=== PATIENT | female | born 1995 | race Caucasian/White ===

== ENCOUNTER → 2020-11-10 | Outpatient (REF) | payer OTHER ==
[2020-11-10 12:21] LABS: HEMATOCRIT 39.9 % (36.0-47.0); HEMOGLOBIN 13.6 g/dl (12.0-15.5); MEAN CORPUSCULAR HEMOGLOBIN 28.5 pg (27.0-33.0); MEAN CORPUSCULAR HGB CONC 34.1 g/dl (32.0-36.5); MEAN CORPUSCULAR VOLUME 83.6 fl (80.0-96.0); PLATELET COUNT, AUTOMATED 241 10^3/uL (150-450); RED BLOOD COUNT 4.77 10^6/uL (4.00-5.40); WHITE BLOOD COUNT 7.5 10^3/uL (4.0-10.0)
[2020-11-10 13:34] LABS: HEPATITIS C VIRUS ABY INDEX < 0.0 INDEX (<0.8); HIV 1&2 SCREEN CENTAUR NEGATIVE (NEGATIVE)
[2020-11-10 14:28] LABS: CHLAMYDIA DNA AMPLIFICATION NEGATIVE (NEGATIVE); GC DNA AMPLIFICATION NEGATIVE (NEGATIVE)
== END ==
LOC: M PLALAB 10:01
PROVIDERS: ATTEND Obstetrics & Gynecology
DX: Z34.91 Encounter for supervision of normal pregnancy, unspecified, first trimester (principal)
CPT/HCPCS: 36415; 85027; 86762; 86780; 86803; 86850; 86900; 86901; 87086; 87340; 87389; 87491; 87591; G0463

== ENCOUNTER → 2021-01-05 | Outpatient (CLI) | payer OTHER, SELFPAY ==
[~2021-01-05] MED LIST: ACET325C5 PO; PRENTAB9 PO
== END ==
LOC: M WHC 11:25
PROVIDERS: ATTEND Obstetrics & Gynecology
DX: Z36.89 Encounter for other specified antenatal screening (principal); Z3A.21 21 weeks gestation of pregnancy; O32.1XX0 Maternal care for breech presentation, not applicable or unspecified

== ENCOUNTER → 2021-02-05 | Outpatient (CLI) | payer OTHER ==
--- NOTE | 2021-02-05 12:05 | REP ---
INDICATION: F/U ANATOMY. VENTRICULAR OUTFLOW TRACTS NOT SEEN ON THE PRIOR EXAM COMPARISON: 01/05/2021 TECHNIQUE: Transabdominal FINDINGS: Multiple ultrasonographic images of the gravid uterus shows a single living intrauterine gestation in the cephalic presentation. Doppler interrogation of the heart shows a heart rate of 149 beats per minute. The placenta is anterior and not low-lying. The cervix measures 3.3 cm in length and is closed. The subjective amniotic fluid volume is increased. BPD: 6.8 cm 27 weeks 3 days HC: 25.6 cm 27 weeks 5 days AC: 23.1 cm 27 weeks 3 days FL: 5.1 cm 27 weeks 3 days The estimated weight is 1082 g which is at the 97 percentile for a 25 week 5 day gestational age. Ventricular outflow tracts were seen today to be within normal limits. IMPRESSION: Single living intrauterine gestation as described above with an estimated gestational age of 27 weeks 4 days via composite criteria and an estimated date of delivery of 05/03/2021 by today's exam. There is subjective evidence of polyhydramnios. Follow-up is recommended. <Electronically signed by Osmel Lino > 02/05/21 [id number]
== END ==
LOC: M WHC 11:09
PROVIDERS: ATTEND Advanced Practice Midwife
DX: Z36.2 Encounter for other antenatal screening follow-up (principal); Z3A.27 27 weeks gestation of pregnancy

== ENCOUNTER → 2021-02-19 | Outpatient (CLI) | payer OTHER ==
[2021-02-19 13:20] LABS: HEMATOCRIT 36.7 % (36.0-47.0); HEMOGLOBIN 12.3 g/dl (12.0-15.5); MEAN CORPUSCULAR HEMOGLOBIN 28.7 pg (27.0-33.0); MEAN CORPUSCULAR HGB CONC 33.5 g/dl (32.0-36.5); MEAN CORPUSCULAR VOLUME 85.7 fl (80.0-96.0); PLATELET COUNT, AUTOMATED 226 10^3/uL (150-450); RED BLOOD COUNT 4.28 10^6/uL (4.00-5.40); WHITE BLOOD COUNT 7.2 10^3/uL (4.0-10.0)
== END ==
LOC: M PLALAB 10:46
PROVIDERS: ATTEND Advanced Practice Midwife
DX: Z36.89 Encounter for other specified antenatal screening (principal); Z3A.22 22 weeks gestation of pregnancy

== ENCOUNTER 2021-03-17 11:18 | Emergency (ER) | payer OTHER ==
[~2021-03-17] VITALS: Ht 170.2 cm; Wt 88.6 kg
[2021-03-17] MEDS ORDERED: ACETAMINOPHEN 325 MG TAB PO ONE (13:45)
[2021-03-17 14:02] VITALS: BP 126/69
[2021-03-17] MEDS ORDERED: NS 1,000 ML IV ONE (14:35)
[2021-03-17] MEDS ORDERED: PRENTAB9 PO (17:37)
[2021-03-17] MEDS ORDERED: ACET325C5 PO (17:37)
== END 2021-03-17 17:15 | disposition admitted as inpatient to this hospital (09) ==
LOC: M ED 11:18
DX: O99.413 Diseases of the circulatory system complicating pregnancy, third trimester (principal); O26.893 Other specified pregnancy related conditions, third trimester; Z3A.31 31 weeks gestation of pregnancy

== ENCOUNTER 2021-03-17 17:21 | Outpatient (CLI) | payer OTHER ==
[~2021-03-17] VITALS: Ht 170.2 cm; Wt 88.6 kg
[2021-03-17] MEDS ORDERED: ACET325C5 PO (17:37)
[2021-03-17] MEDS ORDERED: PRENTAB9 PO (17:37)
[2021-03-17 17:38] VITALS: BP 133/69
[2021-03-17] MEDS ORDERED: HOME MED LIST COMPLETE! XX SCH (17:40)
[2021-03-17 18:10] VITALS: BP 132/69
== END 2021-03-17 18:30 | disposition home or self-care (01) ==
LOC: M LDO 17:21
PROVIDERS: ATTEND Obstetrics & Gynecology
DX: O9A.23 Injury, poisoning and certain other consequences of external causes complicating the puerperium (principal); Z3A.31 31 weeks gestation of pregnancy; T59.894A Toxic effect of other specified gases, fumes and vapors, undetermined, initial encounter; O40.3XX0 Polyhydramnios, third trimester, not applicable or unspecified
CPT/HCPCS: 59025; G0378; G0463

== ENCOUNTER → 2021-04-17 | Outpatient (REF) | payer OTHER | LOC: M SFHCWAGY 13:08 | PROVIDERS: ATTEND Advanced Practice Midwife | DX: Z36.85 Encounter for antenatal screening for Streptococcus B (principal); Z3A.35 35 weeks gestation of pregnancy | CPT/HCPCS: 87081; 90471; 90715; G0463 ==

== ENCOUNTER 2021-05-06 05:24 | Inpatient (IN) | payer OTHER ==
[~2021-05-06] VITALS: Ht 170.2 cm; Wt 93.5 kg
[2021-05-06] VITALS (41 sets, daily range): BP systolic 88–168; BP diastolic 52–125
[2021-05-06] MEDS ORDERED: HOME MED LIST COMPLETE! XX SCH (06:00)
[2021-05-06] MEDS ORDERED: LACTATED RINGER'S 1000 ML IV STA (09:51)
[2021-05-06] MEDS ORDERED: OXYTOCIN DRIP 30 UNITS in IV 1 EA IV PRN ×4 (09:55)
[2021-05-06] MEDS ORDERED: LR 1,000 ML IV SCH (09:55)
[2021-05-06] MEDS ORDERED: CARBOPROST TROMETHAMINE 250 MCG/ML AMP IM PRN (09:55)
[2021-05-06] MEDS ORDERED: METHYLERGONOVINE MALEATE 0.2 MG/ML VIAL (J2210) IM PRN (09:55)
[2021-05-06] MEDS ORDERED: OXYTOCIN DRIP 30 UNITS in IV 1 EA IV SCH (09:55)
[2021-05-06] MEDS ORDERED: TRANEXAMIC ACID INJection 1,000 MG in NS 100 ML IV PRN (09:55)
[2021-05-06] MEDS ORDERED: LIDOCAINE 1% MDV 20ML VIAL INFIL PRN (09:55)
[2021-05-06 10:28] LABS: HEMATOCRIT 34.6 % (36.0-47.0); HEMOGLOBIN 11.6 g/dl (12.0-15.5); MEAN CORPUSCULAR HEMOGLOBIN 27.5 pg (27.0-33.0); MEAN CORPUSCULAR HGB CONC 33.5 g/dl (32.0-36.5); PLATELET COUNT, AUTOMATED 210 10^3/uL (150-450); RED BLOOD COUNT 4.22 10^6/uL (4.00-5.40); WHITE BLOOD COUNT 7.7 10^3/uL (4.0-10.0)
[2021-05-06] MEDS ORDERED: FENTANYL 2MCG/ML ROPIVACAINE 0.2% IN 0.9% NACL 100ML IVBAG As Ordered ONE (11:01)
[2021-05-06] MEDS ORDERED: REFRIGERATOR IV KEYS XX PRN (11:15)
[2021-05-06] MEDS ORDERED: EPIDURAL COMMENT XX SCH (11:15)
[2021-05-06] MEDS ORDERED: EPIDURAL/PCA KEYS XX PRN (11:15)
[2021-05-06] MEDS ORDERED: FENTANYL/ROPIVACAINE/NACL BAG 100 ML EPIDURAL SCH (11:15)
--- NOTE | 2021-05-06 11:37 | HPE ---
HISTORY AND PHYSICAL DATE OF ADMISSION: 05/06/2021 SUBJECTIVE: Evelin is a 26-year-old 2, para 1-0-0-1 at 38 and 4/7 weeks gestation with EDC of 05/16/2021 based on last menstrual period and confirmed by first trimester sonogram. She presents to Labor and Delivery today with complaint of irregular painful contractions, denies vaginal bleeding, and leakage of fluid. The fetus has been active. Her care was [facility] at [facility] in the first trimester. course has been uncomplicated thus far. OBSTETRIC HISTORY: February 03, 2019, 39 weeks gestation, 9 pound male, vaginal delivery, uncomplicated. OBSTETRIC LABORATORY: A positive. Antibody screen negative. Syphilis negative. Gonorrhea and chlamydia negative. Hepatitis B negative. Hepatitis C negative. HIV negative. Rubella immune. GDS is normal at 92. GBS was negative. PAST MEDICAL HISTORY: Noncontributory. SURGERIES: None. FAMILY HISTORY: Noncontributory. SOCIAL HISTORY: She is a nonsmoker, denies alcohol and drug use. No history of sexually transmitted infections. Denies history of abuse, physical, sexual, and emotional. ALLERGIES: No known drug allergies. CURRENT MEDICATIONS: vitamin. OBJECTIVE: Temperature 97.6. Pulse 75. Blood pressure 110/59. heart rate is 140 with moderate variability. Positive accelerations. Negative decelerations. Contractions are irregular with uterine irritability. Repeat cervical exam at approximately 9:45, 6-7 cm dilated, 8% effaced, -3 station. Abdomen is gravid, cephalic presentation, 8.5 to 9 pounds. ASSESSMENT: 1. Intrauterine at 38 and 4/7 weeks. 2. heart rate category 1. 3. Early labor. PLAN: 1. Admit patient to Labor and Delivery. 2. Out of bed ad tila. 3. Clear liquid diet. 4. Routine laboratories. 5. IV fluid bolus. 6. Anesthesia consult for epidural for labor coping. 7. Risks, benefits, and alternatives have been reviewed with the patient. All questions were answered. The plan is to start IV Pitocin to augment the patient's labor. I do anticipate a spontaneous vaginal delivery.
[2021-05-06] MEDS ORDERED: NALOXONE INJ 0.4MG/1ML VIAL (J2310 PER 1MG) IV PRN (12:05)
[2021-05-06] MEDS ORDERED: ONDANSETRON 4MG/2ML VIAL IV PRN (12:05)
[2021-05-06] MEDS ORDERED: diphenhydrAMINE 50MG/ML VIAL (J1200) IV PRN (12:05)
[2021-05-06] MEDS ORDERED: LACTATED RINGER'S 1000 ML IV PRN (12:05)
[2021-05-06] MEDS ORDERED: ePHEDrine SULFATE 25 MG/5 ML(5MG/ML) SYRINGE IV PRN (12:05)
[2021-05-06] MEDS ORDERED: ACETAMINOPHEN TAB 650MG DOSE (2X325MG) PO PRN (16:50)
[2021-05-06] MEDS ORDERED: RHOGAM 300 MCG (1500 IU) INJ (J2790) IM SCH (16:50)
[2021-05-06] MEDS ORDERED: IBUPROFEN 600MG TAB PO PRN (16:50)
[2021-05-06] MEDS ORDERED: METHYLERGONOVINE MALEATE 0.2 MG TAB PO PRN (16:50)
[2021-05-06] MEDS ORDERED: DIBUCAINE 1% OINTMENT 30GM TOP PRN (16:50)
[2021-05-06] MEDS ORDERED: DOCUSATE SODIUM 100MG CAPSULE PO PRN (16:50)
[2021-05-06] MEDS ORDERED: MEASLES,MUMPS,RUBELLA VACCINE INJ (MMR-II) (90707) SC SCH (16:50)
--- NOTE | 2021-05-06 17:32 | DN ---
DELIVERY NOTE DATE OF DELIVERY: 05/06/2021 Evelin is a 26-year-old 2, para 2-0-0-2 now, who was admitted to labor and delivery with advanced dilation and irregular contractions. Intravenous (IV) Pitocin was started and labor ensued. She utilized an epidural for her labor coping. She reached complete dilation at 1605. She pushed to normal spontaneous vaginal delivery of a live female in right occiput anterior (PIPER) position with restitution of low occiput transverse (LOT) position at 1623. There was no nuchal cord. Shoulders delivered with gentle downward traction, and the corpus immediately followed. The 's mouth and nares were bulb suctioned. She was placed on the maternal abdomen crying and active. Cord was clamped times two once pulsations ceased and cut by the father of the baby under my direction. A spontaneous expulsion of the intact placenta with 3-vessel cord by Ma mechanism was at 1627. Uterine hemostasis achieved with intravenous (IV) Pitocin rapid infusion and uterine fundal massage. Estimated blood loss 350 mL. Perineum and vagina inspected and noted to have a first-degree midline laceration. The laceration was repaired with 3-0 Vicryl Rapide in the usual fashion. The female weighed 4150 grams, 9 pounds 2 ounces, scores 9 and 9. Mom is going to breast-feed her daughter, and the family have named her Alvarez. At the close of delivery, lap counts, needle counts, and instrument counts were correct and verified.
[2021-05-06] MEDS: IBUPROFEN 800 MG TAB PO PRN (20:37)
[2021-05-07] MEDS: ACETAMINOPHEN 500 MG TAB PO PRN ×2 (05:23→18:23)
[2021-05-07 06:12] VITALS: BP 102/55
[2021-05-07] MEDS: PRENATAL VITAMINS CHEWABLE TABLET PO SCH (08:24)
[2021-05-07] MEDS ORDERED: INFLUENZA QUADRIVALENT PF VACCINE 0.5ML SYRINGE IM ONE (09:00)
[2021-05-07] MEDS: IBUPROFEN 800 MG TAB PO PRN (12:42)
--- NOTE | 2021-05-07 13:17 | IPNPDOC ---
Progress Note Date of Service: May 07, 2021 Day#: 1 Progress Note SUBJECT: Doing well without complaints. Ambulating, voiding and pain is well-c ontrolled. Reports minimal lochia. OBJECTIVE: VITAL SIGNS: Within normal limits, afebrile. Alert and oriented times three. Abdomen: Fundus firm at U-2. Soft, NTTP. Ext: neg calf tenderness. ASSESSMENT: day #1 status post . Recovering in stable condition. PLAN: 1. Continue routine care 2. Discharge plans for tomorrow VS, I&O, 24H, Fishbone Vital Signs/I&O Vital Signs Date Time Temp Pulse Resp B/P (MAP) Pulse Ox O2 Delivery O2 Flow Rate FiO2 05/07/21 06:12 97.6 79 18 102/55 (71) 98 I&O- Last 24 Hours up to 6 AM 05/07/21 06:00 Intake Total 3465.4 ml Output Total 1500 ml Balance 1965.4 ml YASMIN VASQUEZ MD. May 07, 2021 13:17
[2021-05-07 17:46] VITALS: BP 119/58
[2021-05-08] MEDS: IBUPROFEN 800 MG TAB PO PRN (03:22)
[2021-05-08 05:23] VITALS: BP 111/61
[2021-05-08] MEDS: PRENATAL VITAMINS CHEWABLE TABLET PO SCH (09:04)
[2021-05-08] MEDS: ACETAMINOPHEN 500 MG TAB PO PRN (09:05)
== END 2021-05-08 13:50 | disposition home or self-care (01) | DRG 807 ==
LOC: M LDO 05:24 → M LDI 09:46 → M OBS 18:44
PROVIDERS: ADMIT Advanced Practice Midwife; ATTEND Advanced Practice Midwife
PROC: 10E0XZZ Delivery of Products of Conception, External Approach (ICD-10-PCS; principal; 2021-05-06)
PROC: 0HQ9XZZ Repair Perineum Skin, External Approach (ICD-10-PCS; 2021-05-06)
DX: O70.0 First degree perineal laceration during delivery (principal); Z37.0 Single live birth; Z3A.38 38 weeks gestation of pregnancy